=== PATIENT | male | born 1995 | race Hispanic/Latino ===

== ENCOUNTER 2021-01-11 22:22 | Emergency (ER) | payer SELFPAY ==
--- NOTE | 2021-01-11 23:02 | ER ---
Nurse's Notes [facility] Name: Sangeetha Paredes Age: 25 yrs Sex: Male : 1995 Arrival Date: 01/11/2021 Time: 22:32 Bed 28 Private MD: Diagnosis: Benign paroxysmal vertigo, unspecified ear Presentation: 01/11 22:36 Chief complaint: Patient states: Pt states he has been feeling weak and dizzy for the last couple days. Denies SOB, CP, N/V, or diarrhea. Pt denies taking any medication or PMH. Pt denies blurred vision or weakness on one side. States able to walk with steady gait. Coronavirus screen: Vaccine status: Patient reports receiving the 1st dose of the Covid vaccine. Date November 30, 2020. Ebola Screen: Patient negative for fever greater than or equal to 101.5 degrees Fahrenheit, and additional compatible Ebola Virus Disease symptoms Patient denies exposure to infectious person. Patient denies travel to an Ebola-affected area in the 21 days before illness onset. No symptoms or risks identified at this time. Initial Sepsis Screen: Does the patient meet any 2 criteria? No. Patient's initial sepsis screen is negative. Does the patient have a suspected source of infection? No. Patient's initial sepsis screen is negative. Risk Assessment: Do you want to hurt yourself or someone else? Patient reports no desire to harm self or others. Onset of symptoms was January 09, 2021. Care prior to arrival: None. Activity prior to arrival: None. 22:36 Method Of Arrival: Ambulatory 22:36 Acuity: CANDIDO 3 Triage Assessment: 22:40 The onset of the patients symptoms was January 09, 2021 at 12:00. General: Appears in no apparent distress. well groomed, well developed, Behavior is calm, cooperative, appropriate for age. Pain: Denies pain. EENT: No deficits noted. Neuro: Reports dizziness, weakness since 2 days Denies blurred vision difficulty swallowing, paresthesias numbness headache photophobia Seizure activity. Cardiovascular: No deficits noted. Respiratory: No deficits noted. GI: No deficits noted. : No deficits noted. Derm: No deficits noted. Musculoskeletal: No deficits noted. Historical: - Allergies: 22:41 No Known Allergies; wg - Home Meds: 22:41 None [Active]; wg - PMHx: 22:41 None; wg - Immunization history:: Adult Immunizations up to date. - Social history:: Smoking status: Patient denies any tobacco usage or history of. - Code Status:: Full code. Screenin:00 Abuse screen: Denies threats or abuse. Denies injuries from another. Nutritional kg screening: No deficits noted. Tuberculosis screening: No symptoms or risk factors identified. Fall Risk None identified. Vital Signs: 22:36 BP 114 / 81; Pulse 114; Resp 18; Temp 99.0; Pulse Ox 98% on R/A; Weight 99.79 kg; wg Height 5 ft. 7 in. (170.18 cm); Pain 0/10; 23:10 BP 117 / 84; Pulse 015; Resp 20; Pulse Ox 98% on R/A; kg 22:36 Body Mass Index 34.46 (99.79 kg, 170.18 cm) wg ED Course: 22:32 Patient arrived in ED. cf2 22:39 Triage completed. wg 22:39 Arm band placed on right wrist. wg 22:48 Kalen Gomez MD is Attending Physician. tw4 23:00 Patient has correct armband on for positive identification. kg 23:00 No provider procedures requiring assistance completed. Patient did not have IV access kg during this emergency room visit. 23:01 Naomi Yang RN is Primary Nurse. kg 23:03 Zina Campbell MD is Referral Physician. tw4 Administered Medications: No medications were administered Outcome: 23:00 Discharged to home ambulatory. kg 23:00 Condition: good 23:00 Discharge instructions given to patient, family, Instructed on discharge instructions, follow up and referral plans. Demonstrated understanding of instructions, follow-up care, medications, Prescriptions given X 1. 23:01 Discharge ordered by . tw4 01/12 00:12 Patient left the ED. kg Signatures: Kalen Gomez MD MD tw4 Marissa Chambers cf2 Naomi Yang RN RN Roby Stapleton RN Corrections: (The following items were deleted from the chart) 00:10 12 23:35 BP 117 / 84; Pulse 015bpm; Resp 20bpm; Pulse Ox 98% RA; kg kg 01/12 00:10 01/11 23:45 BP 117 / 84; Pulse 015bpm; Resp 20bpm; Pulse Ox 98% RA; kg kg
--- NOTE | 2021-01-11 23:02 | EDPHYS ---
Physician Documentation [facility] Name: Sangeetha Paredes Age: 25 yrs Sex: Male : 1995 Arrival Date: 01/11/2021 Time: 22:32 Bed 28 Private MD: NANCY Physician Kalen Gomez HPI: 01/12 05:44 This 25 yrs old Male presents to ER via Ambulatory with complaints of tw4 Dizziness, Weakness. 05:44 The patient presents with a sense of confusion, sense of spinning. Onset: The tw4 symptoms/episode began/occurred today. Context: occurred at home. Modifying factors: The symptoms are alleviated by holding head still, the symptoms are aggravated by movement of head, standing up. Associated signs and symptoms: The patient has no apparent associated signs or symptoms. The patient has not experienced similar symptoms in the past. Historical: - Allergies: 01/11 22:41 No Known Allergies; wg - Home Meds: 22:41 None [Active]; wg - PMHx: 22:41 None; wg - Immunization history:: Adult Immunizations up to date. - Social history:: Smoking status: Patient denies any tobacco usage or history of. - Code Status:: Full code. ROS: 01/12 05:44 Constitutional: Negative for fever, chills, and weight loss, Eyes: Negative for injury, tw4 pain, redness, and discharge, Cardiovascular: Negative for chest pain, palpitations, and edema, Respiratory: Negative for shortness of breath, cough, wheezing, and pleuritic chest pain, Abdomen/GI: Negative for abdominal pain, nausea, vomiting, diarrhea, and constipation, Back: Negative for injury and pain, MS/Extremity: Negative for injury and deformity, Skin: Negative for injury, rash, and discoloration. Skin: Positive for Neuro: Positive for dizziness, Negative for altered mental status, gait disturbance, headache, hearing loss, numbness, seizure activity, speech changes, syncope, near syncope, tingling, tinnitus, tremor, visual changes, weakness. Exam: 05:44 Constitutional: This is a well developed, well nourished patient who is awake, alert, tw4 and in no acute distress. Head/Face: Normocephalic, atraumatic. Chest/axilla: Normal chest wall appearance and motion. Nontender with no deformity. No lesions are appreciated. Cardiovascular: Regular rate and rhythm with a normal S1 and S2. No gallops, murmurs, or rubs. Normal PMI, no JVD. No pulse deficits. Respiratory: Lungs have equal breath sounds bilaterally, clear to auscultation and percussion. No rales, rhonchi or wheezes noted. No increased work of breathing, no retractions or nasal flaring. Abdomen/GI: Soft, non-tender, with normal bowel sounds. No distension or tympany. No guarding or rebound. No evidence of tenderness throughout. Back: No spinal tenderness. No costovertebral tenderness. Full range of motion. Skin: Warm, dry with normal turgor. Normal color with no rashes, no lesions, and no evidence of cellulitis. MS/ Extremity: Pulses equal, no cyanosis. Neurovascular intact. Full, normal range of motion. Neuro: Awake and alert, GCS 15, oriented to person, place, time, and situation. Cranial nerves II-XII grossly intact. Motor strength 5/5 in all extremities. Sensory grossly intact. Cerebellar exam normal. Normal gait. Vital Signs: 01/11 22:36 BP 114 / 81; Pulse 114; Resp 18; Temp 99.0; Pulse Ox 98% on R/A; Weight 99.79 kg; wg Height 5 ft. 7 in. (170.18 cm); Pain 0/10; 23:10 BP 117 / 84; Pulse 015; Resp 20; Pulse Ox 98% on R/A; kg 22:36 Body Mass Index 34.46 (99.79 kg, 170.18 cm) wg MDM: 23:01 Patient medically screened. tw4 01/12 05:44 Differential diagnosis: cardiac arrhythmia, generalized weakness, head injury, tw4 hyperventilation. Data reviewed: vital signs, nurses notes. Special discussion: I discussed with the patient/guardian in detail that at this point there is no indication for admission to the hospital. It is understood, however, that if the symptoms persist or worsen the patient needs to return immediately for re-evaluation. Administered Medications: No medications were administered Disposition Summary: 01/11/21 23:01 Discharge Ordered Location: Home tw4 Problem: new tw4 Symptoms: have improved tw4 Condition: Stable tw4 Diagnosis - Benign paroxysmal vertigo, unspecified ear tw4 Followup: tw4 - With: Private Physician - When: Upon discharge from the Emergency Department - Reason: Recheck today's complaints, Continuance of care, Re-evaluation by your physician Followup: tw4 - With: Zina Campbell MD - When: Upon discharge from the Emergency Department - Reason: Recheck today's complaints, Continuance of care, Re-evaluation by your physician Discharge Instructions: - Discharge Summary Sheet tw4 - Benign Positional Vertigo tw4 - Dizziness tw4 - Vertigo tw4 Forms: - Medication Reconciliation Form tw4 - Thank You Letter tw4 - Antibiotic Education tw4 - Prescription Opioid Use tw4 Prescriptions: - Meclizine 25 mg Oral Tablet - take 1 tablet by ORAL route every 8 hours As needed; 30 tablet; Refills: 0, tw4 Product Selection Permitted Signatures: Dispatcher [employer] Kalen Echeverria MD MD tw4 Roby Stapleton, RN wg Corrections: (The following items were deleted from the chart) 01/11 23:03 22:46 CORONAVIRUS+MR.LAB.BRZ ordered. EDMS MARTINEZ
[2021-01-11] MEDS ORDERED: MECLIZINE HCL 12.5 MG TAB ONE (23:27)
[2021-01-12 00:17] VITALS: TEMP 99; O2SAT 98
[2021-01-12 00:18] VITALS: BP 117/84
== END 2021-01-12 00:12 | disposition home or self-care (01) ==
LOC: ER 22:22
DX: U07.1 COVID-19 (principal); H81.10 Benign paroxysmal vertigo, unspecified ear
CPT/HCPCS: 99282; U0003

== ENCOUNTER 2021-05-13 09:46 | Emergency (ER) | payer OTHER, SELFPAY ==
[2021-05-13 12:35] LABS: Absolute Lymphocytes (CBC) 2.6 K/uL (0.7-4.9); Hematocrit 41.2 % (39.6-49.0); Lymphocytes % 27.1 % (15.3-44.8); MPV 7.8 fL (7.6-11.3); RBC Red Blood Cell Count 4.85 M/uL (4.33-5.43)
[2021-05-13 12:53] LABS: ALT/SGPT 52 U/L (12-78); AST/SGOT 40 U/L (15-37); Alkaline Phosphatase 64 U/L (45-117); BUN Blood Urea Nitrogen 14 mg/dL (7-18); Bicarbonate 28 mmol/L (21-32); Bilirubin Direct < 0.1 mg/dL (0-0.2); Bilirubin Total 0.2 mg/dL (0.2-1.0); Glucose Level 102 mg/dL (74-106); Lipase 129 U/L (73-393); Potassium 4.1 mmol/L (3.5-5.1); Protein, Total 7.7 g/dL (6.4-8.2); Sodium Level 139 mmol/L (136-145)
--- NOTE | 2021-05-13 13:43 | RAD REPORT ---
EXAM DESCRIPTION: CT - Abdomen Pelvis W Contrast - 05/13/2021 1:35 pm CLINICAL HISTORY: RLQ/periumbilical;Abd pain COMPARISON: No comparisons TECHNIQUE: Biphasic, helical CT imaging of the abdomen and pelvis was performed following 100 ml non -ionic IV contrast. No oral contrast administered. All CT scans are performed using dose optimization technique as appropriate and may include automated exposure control or mA/KV adjustment according to patient size. FINDINGS: Moderately large area of airspace opacification and air bronchogram formation noted in the posterior right lower lobe. No cavitation or pleural effusion. Left lung base is clear. The liver, spleen, and pancreas show no suspicious findings. Gallbladder and biliary tree are also wi thout suspicious finding. Symmetric renal function is seen with no hydronephrosis or suspicious renal mass. No pyelonephritis o r acute parenchymal process. No bladder abnormalities. No adrenal abnormalities. No dilated bowel loops or bowel wall thickening. Appendix is normal. No free air, free fluid or infla mmatory stranding. No hernia, mass or bulky lymphadenopathy. No suspicious bony findings. IMPRESSION: Moderately large right lower lobe pneumonia. No acute or significant CT abdomen or pelvis finding.
--- NOTE | 2021-05-13 13:52 | ER ---
Nurse's Notes [facility] Name: Sangeetha Paredes Age: 25 yrs Sex: Male : 1995 Arrival Date: 05/13/2021 Time: 09:49 Bed 12 Private MD: Diagnosis: Pneumonia, unspecified organism Presentation: 05/13 09:58 Chief complaint: Patient states: Headache, diarrhea and fever x 3 days, denies cough, jl7 denies shortness of breath. Coronavirus screen: Vaccine status: Patient reports receiving the 2nd dose of the covid vaccine. Pfizer Client presents with at least one sign or symptom that may indicate coronavirus-19. Standard/surgical mask placed on the client. Ebola Screen: No symptoms or risks identified at this time. Initial Sepsis Screen: Does the patient meet any 2 criteria? No. Patient's initial sepsis screen is negative. Does the patient have a suspected source of infection? No. Patient's initial sepsis screen is negative. Risk Assessment: Do you want to hurt yourself or someone else? Patient reports no desire to harm self or others. Onset of symptoms was May 10, 2021. 09:58 Method Of Arrival: Ambulatory [facility] 09:58 Acuity: CANDIDO 4 jl7 Triage Assessment: 10:00 Headache History: The patient has had previous headaches and this one is similar to 7 previous episodes. General: Appears in no apparent distress. uncomfortable, Behavior is calm, cooperative, appropriate for age. Pain: Complains of pain in headache Pain currently is 6 out of 10 on a pain scale. Pain began 2-3 days ago. Also complains of no other associated symptoms. Neuro: Level of Consciousness is awake, alert, obeys commands, Oriented to person, place, time, situation. Cardiovascular: Patient's skin is warm and dry. Respiratory: Airway is patent Respiratory effort is even, unlabored, Respiratory pattern is regular, symmetrical. Derm: Skin is pink, warm \T\ dry. Historical: - Allergies: 10:00 No Known Allergies; jl7 - Home Meds: 10:00 None [Active]; jl7 - PMHx: 10:00 None; jl7 - PSHx: 10:00 None; jl7 - Immunization history:: Client reports receiving the 2nd dose of the Covid vaccine, Pfizer. - Social history:: Smoking status: Patient denies any tobacco usage or history of. - Family history:: not pertinent. - Hospitalizations: : No recent hospitalization is reported. Screenin:12 Abuse screen: Denies threats or abuse. Denies injuries from another. Nutritional ld1 screening: No deficits noted. Tuberculosis screening: No symptoms or risk factors identified. Fall Risk None identified. Assessment: 10:29 General: Appears in no apparent distress. comfortable, Behavior is calm, cooperative, ss Denies fever. Neuro: Level of Consciousness is awake, alert, obeys commands, Oriented to person, place, time, situation. Neuro: Reports Intermittent headache x3 days. Cardiovascular: Capillary refill < 3 seconds is brisk in bilateral fingers Patient's skin is warm and dry. Respiratory: Airway is patent Respiratory effort is even, unlabored, Respiratory pattern is regular, symmetrical. GI: Reports diarrhea, since x3 days Patient currently denies nausea, vomiting. EENT: Nares are clear Oral mucosa is moist. Throat is clear. Derm: Skin is pink, warm \T\ dry. Vital Signs: 09:58 BP 124 / 80; Pulse 98; Resp 17; Temp 97.9; Pulse Ox 99% on R/A; Weight 113.4 kg; Height jl7 5 ft. 7 in. (170.18 cm); Pain 6/10; 13:18 BP 129 / 82; Pulse 95; Resp 18; Pulse Ox 100% on R/A; ld1 09:58 Body Mass Index 39.16 (113.40 kg, 170.18 cm) jl7 ED Course: 09:49 Patient arrived in ED. as 10:00 Triage completed. jl7 10:00 Arm band placed on right wrist. jl7 10:01 COVID swab sent to lab. jl7 10:03 Jadon Perales MD is Attending Physician. rn 10:29 Enid Rivera RN is Primary Nurse. ss 12:30 Inserted saline lock: 20 gauge in right antecubital area, using aseptic technique. ld1 Blood collected. 13:35 CT Abd/Pelvis - IV Contrast Only In Process Unspecified. EDMS 14:13 Patient has correct armband on for positive identification. Placed in gown. Bed in low ld1 position. Call light in reach. Pulse ox on. NIBP on. Door closed. Noise minimized. 14:13 No provider procedures requiring assistance completed. IV discontinued, intact, ld1 bleeding controlled, No redness/swelling at site. Administered Medications: 13:53 Drug: LevaQUIN (levofloxacin) 750 mg Route: PO; ld1 Outcome: 13:51 Discharge ordered by . rn 14:13 Discharged to home ambulatory. ld1 14:13 Condition: stable 14:13 Discharge instructions given to patient, Instructed on discharge instructions, follow up and referral plans. medication usage, Demonstrated understanding of instructions, follow-up care, medications, Prescriptions given X 1. 14:13 Patient left the ED. ld1 Signatures: Dispatcher [employer] EDMS Nydia Sheriff Roman, MD MD rn Smirch, Shelby, RN RN Geovany Yeboah RN RN jl7 Annelise Berry RN RN ld1
--- NOTE | 2021-05-13 13:52 | EDPHYS ---
Physician Documentation [facility] Name: Sangeetha Paredes Age: 25 yrs Sex: Male : 1995 Arrival Date: 05/13/2021 Time: 09:49 Bed 12 Private MD: ED Physician Jadon Perales HPI: 05/13 10:42 This 25 yrs old Male presents to ER via Ambulatory with complaints of rn Headache, Diarrhea. 10:43 The patient presents to the emergency department with diarrhea. Onset: The rn symptoms/episode began/occurred 3 day(s) ago. Possible causes: unknown. The symptoms are aggravated by nothing. The symptoms are alleviated by nothing. Associated signs and symptoms: Pertinent positives: diarrhea, fever, Headache, congestion. Severity of symptoms: At their worst the symptoms were mild in the emergency department the symptoms are unchanged. The patient has not experienced similar symptoms in the past. The patient has not recently seen a physician. Patient reports sent home from work 3 days ago for fever. Reports generalized malaise and fatigue. Reports headache/congestion/myalgias/diarrhea and decreased appetite. No known sick contacts.. Historical: - Allergies: 10:00 No Known Allergies; jl7 - Home Meds: 10:00 None [Active]; jl7 - PMHx: 10:00 None; jl7 - PSHx: 10:00 None; jl7 - Immunization history:: Client reports receiving the 2nd dose of the Covid vaccine, Pfizer. - Social history:: Smoking status: Patient denies any tobacco usage or history of. - Family history:: not pertinent. - Hospitalizations: : No recent hospitalization is reported. ROS: 10:43 Constitutional: Positive for fever Eyes: Negative for injury, pain, redness, and rn first assist, ENT: Positive for congestion Neck: Negative for injury, pain, and swelling, Cardiovascular: Negative for chest pain, palpitations, and edema, Respiratory: Positive for cough Abdomen/GI: Positive for diarrhea Back: Negative for injury and pain, : Negative for injury, bleeding, discharge, and swelling, MS/Extremity: Negative for injury and deformity, Skin: Negative for injury, rash, and discoloration, Neuro: Negative for numbness, tingling, and seizure. Exam: 10:43 Constitutional: This is a well developed, well nourished patient who is awake, alert, rn and in no acute distress. Head/Face: Normocephalic, atraumatic. Eyes: Periorbital areas with no swelling, redness, or edema. ENT: Moist mucous membranes, no stridor Neck: Trachea midline, no thyromegaly or masses palpated, and no cervical lymphadenopathy. Supple, full range of motion without nuchal rigidity, or vertebral point tenderness. No Meningismus. Cardiovascular: Regular rate and rhythm. No pulse deficits. Respiratory: No increased work of breathing, no retractions or nasal flaring. Abdomen/GI: Soft, non-tender Skin: Warm, dry with normal turgor. Normal color with no rashes, no lesions, and no evidence of cellulitis. MS/ Extremity: Pulses equal, no cyanosis. Neurovascular intact. Full, normal range of motion. Equal circumference. Neuro: Awake and alert, GCS 15, oriented to person, place, time, and situation. Cranial nerves II-XII grossly intact. Motor strength 5/5 in all extremities. Sensory grossly intact. Cerebellar exam normal. Normal gait. Vital Signs: 09:58 BP 124 / 80; Pulse 98; Resp 17; Temp 97.9; Pulse Ox 99% on R/A; Weight 113.4 kg; Height jl7 5 ft. 7 in. (170.18 cm); Pain 6/10; 13:18 BP 129 / 82; Pulse 95; Resp 18; Pulse Ox 100% on R/A; ld1 09:58 Body Mass Index 39.16 (113.40 kg, 170.18 cm) jl7 MDM: 10:03 Patient medically screened. rn 13:51 Differential diagnosis: Nonspecific abd pain, gastritis, viral gastroenteritis, rn gastroenteritis, pneumonia, COVID. Data reviewed: vital signs, nurses notes, lab test result(s), radiologic studies, CT scan, and as a result, I will discharge patient. Counseling: I had a detailed discussion with the patient and/or guardian regarding: the historical points, exam findings, and any diagnostic results supporting the discharge/admit diagnosis, lab results, radiology results, the need for outpatient follow up, to return to the emergency department if symptoms worsen or persist or if there are any questions or concerns that arise at home. Response to treatment: the patient's symptoms have mildly improved after treatment, and as a result, I will discharge patient. Special discussion: I discussed with the patient/guardian in detail that at this point there is no indication for admission to the hospital. It is understood, however, that if the symptoms persist or worsen the patient needs to return immediately for re-evaluation. 05/13 10:02 Order name: COVID-19 SARS RT PCR (Document "Date of Onset" if Symptomatic); Complete jl7 Time: 12:18 05/13 12:20 Order name: Basic Metabolic Panel; Complete Time: 13:16 rn 05/13 12:20 Order name: CT Abd/Pelvis - IV Contrast Only; Complete Time: 13:50 rn 05/13 12:20 Order name: CBC with Diff; Complete Time: 13:16 rn 05/13 12:20 Order name: Hepatic Function; Complete Time: 13:16 rn 05/13 12:20 Order name: Lipase; Complete Time: 13:16 rn 05/13 12:20 Order name: IV Start; Complete Time: 12:30 rn 05/13 12:20 Order name: Labs collected and sent; Complete Time: 12:30 rn Administered Medications: 13:53 Drug: LevaQUIN (levofloxacin) 750 mg Route: PO; ld1 Disposition Summary: 05/13/21 13:51 Discharge Ordered Location: Home rn Problem: new rn Symptoms: have improved rn Condition: Stable rn Diagnosis - Pneumonia, unspecified organism rn Followup: rn - With: Private Physician - When: As needed - Reason: Recheck today's complaints, Re-evaluation by your physician Discharge Instructions: - Discharge Summary Sheet rn - Community-Acquired Pneumonia, Adult rn Forms: - Medication Reconciliation Form rn - Thank You Letter rn - Work release form bd - Antibiotic rn first assist - Prescription Opioid Use rn Prescriptions: - levofloxacin 500 mg Oral Tablet - take 1 tablet by ORAL route once daily for 7 days; 7 tablet; Refills: 0, rn Product Selection Permitted Signatures: Dispatcher [employer] Jadon Ellington MD MD rn Leal, Jahala RN RN jl7 Annelise Berry RN RN ld1
[2021-05-13] MEDS ORDERED: levoFLOXacin 750 MG TAB ONE (13:53)
[2021-05-13 14:42] VITALS: TEMP 97.9
[2021-05-13 14:44] VITALS: BP 129/82; O2SAT 100
== END 2021-05-13 14:13 | disposition home or self-care (01) ==
LOC: ER 09:46
DX: J18.9 Pneumonia, unspecified organism (principal); Z20.822 Contact with and (suspected) exposure to COVID-19
CPT/HCPCS: 36415; 74177; 80048; 80076; 83690; 85025; Q9967; U0003